=== PATIENT | female | born 1990 | race African-American/Black ===

== ENCOUNTER 2017-10-25 09:50 | Emergency (ER) | payer MEDICAID ==
[~2017-10-25] VITALS: Ht 157.5 cm; Wt 92.9 kg
[2017-10-25 10:09] VITALS: BP 123/77
== END 2017-10-25 18:01 | disposition left against medical advice (07) ==
LOC: ER 13:00
DX: M79.672 Pain in left foot (principal); Z53.21 Procedure and treatment not carried out due to patient leaving prior to being seen by health care provider
CPT/HCPCS: 81025